=== PATIENT | female | born 1940 | race Caucasian/White ===

== ENCOUNTER → 2019-02-23 | Outpatient (CLI) | payer MEDICARE, OTHER ==
--- NOTE | 2019-02-23 14:45 | Diagnostic Imaging Report ---
INDICATION: Right knee pain. AP, oblique, and lateral views of the right knee are obtained. No fracture or acute bony abnormality is seen. There is mild medial joint space narrowing and osteophyte formation. IMPRESSION: Mild degenerative change of the medial compartment with no acute bony abnormality or joint effusion. Dictated by: Dictated on workstation # [id number]
== END ==
LOC: RAD FS 10:19
PROVIDERS: ATTEND Nurse Practitioner
DX: M17.11 Unilateral primary osteoarthritis, right knee (principal)
CPT/HCPCS: 73562

== ENCOUNTER 2020-02-04 16:50 | Emergency (ER) | payer OTHER, MEDICARE ==
[~2020-02-04] VITALS: Ht 170.2 cm; Wt 56.8 kg
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
[2020-02-04] MEDS ORDERED: HYDR-83 PO (18:25)
[2020-02-04] MEDS ORDERED: HYDROcodone/APAP 5 MG/325 MG (LORTAB) TAB PO ONE (18:30)
[2020-02-04 18:40] VITALS: BP 194/85
--- OUTSIDE RECORDS SUMMARY | 2020-02-04 20:13 | XMS REPORT ---
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 0 [id number] Problem Closed left hip fracture S72.002A Sep, 0 686367673 Problem Hypothyroidism due to acquired atrophy of thyroid 244.8 Jun, 0 052880009 Problem Hypothyroidism due to acquired atrophy of thyroid E03.4 Jun, 0 958972019 Problem CKD (chronic kidney disease) stage 3, GFR 30-59 ml/min N18.3 Jun, 0 669415757 Problem Hypothyroidism 244.9 Apr, 0 40 772367 Problem Osteoarthritis of left knee M17.12 07 Mar, 2010 0 687566140 Problem Anxiety state 300.00 Oct, 0 198 313523 Problem Osteoarthritis of lumbar spine M47.816 0 225823689 Problem Anxiety state F41.1 Oct, 0 198 917342 Problem Hypothyroidism E03.9 Apr, 0 40 610522 Problem Osteoarthritis of left knee 715.96 07 Mar, 2010 0 473552055 Problem CKD (chronic kidney disease) stage 3, GFR 30-59 ml/min 585.3 Jun, 0 358060332 ALLERGIES No Information ENCOUNTERS Encounter Location Date Diagnosis [facility] [address] [place] [address] Sep, [facility] [address] [facility] [id number] [address] [address] Jun, [facility] [address] [id number] [address] [place] [phone] Jun, [facility] [address] [facility] [id number] [address] [place] [phone] Jun, [facility] [address] [facility] [id number] [address] [place] [phone] Jun, [facility] [address] [facility] [id number] [address] [place] [phone] Oct, [facility] [address] [facility] [id number] [address] [place] [phone] Oct, [facility] [address] [facility] [id number] [address] [place] [phone] Sep, IMMUNIZATIONS No Known Immunizations SOCIAL HISTORY Never Assessed REASON FOR VISIT AMITRIPTYLINE PLAN OF CARE VITAL SIGNS MEDICATIONS Medication Instructions Dosage Frequency Start Date End Date Duration S nancy Amitriptyline HCl 50 MG Orally at bedtime as directed Sep, 90 days Active RESULTS No Results PROCEDURES No Known procedures INSTRUCTIONS MEDICATIONS ADMINISTERED No Known Medications
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
== END 2020-02-04 18:35 | disposition home or self-care (01) ==
LOC: EDUNIT# 16:50 → ER FS 16:51
DX: S82.141A Displaced bicondylar fracture of right tibia, initial encounter for closed fracture (principal); Z88.8 Allergy status to other drugs, medicaments and biological substances; V49.50XA Passenger injured in collision with unspecified motor vehicles in traffic accident, initial encounter
CPT/HCPCS: 70450; 73562

== ENCOUNTER → 2020-02-09 | Outpatient (CLI) | payer OTHER, MEDICARE ==
[~2020-02-09] MED LIST: HYDR-83 PO
--- NOTE | 2020-02-09 15:06 | Diagnostic Imaging Report ---
PROCEDURE: CT right lower extremity without contrast. TECHNIQUE: Axially acquired CT was obtained through the right lower extremity without intravenous contrast. Coronal and sagittal reformations were also performed. Auto Exposure Controls were utilized during the CT exam to meet ALARA standards for radiation dose reduction. INDICATION: Fracture followup. COMPARISON: Knee radiograph of 02/04/2020. FINDINGS: There is a mildly comminuted fracture involving the anterior and peripheral one third of the medial tibial plateau. This has mild comminution present with it and dominant osteoarticular fracture fragment that is depressed approximately 2 mm. The fracture lines extending along the medial cortex of the proximal tibial metaphysis. There is no dominant sagittal split fracture. There are a few thin hairline fractures extending along the bases of the medial and lateral tibial spines. However, these fractures are not displaced nor depressed. No fracture in the lateral tibial plateau. The medial and lateral femoral condyles are intact. Patella is intact. Small lipohemarthrosis is compatible with intra-articular fracture. PCL is intact. ACL not well seen but likely is intact. IMPRESSION: 1. Medial tibial plateau fracture is very mildly comminuted and has approximately 2 mm of maximal articular surface depression. 2. There are hairline fractures involving the bases of the tibial spines, but these fractures are not displaced or depressed. Dictated by: Dictated on workstation # [id number]
== END ==
LOC: RAD FS 12:19
PROVIDERS: ATTEND Nurse Practitioner
DX: S82.131D Displaced fracture of medial condyle of right tibia, subsequent encounter for closed fracture with routine healing (principal); X58.XXXD Exposure to other specified factors, subsequent encounter
CPT/HCPCS: 73700

== ENCOUNTER → 2020-02-21 | Outpatient (CLI) | payer OTHER, MEDICARE ==
[~2020-02-21] MED LIST changes: +HYDR-3812 PO; -HYDR-83 PO
--- NOTE | 2020-02-21 09:31 | Diagnostic Imaging Report ---
INDICATION: Tibial fracture, followup. TIME OF EXAM: 9:16 AM. COMPARISON: 02/04/2020. FINDINGS: The slightly depressed fracture of the medial tibial plateau is again noted. The fracture lines are somewhat blurred, consistent with some healing, but do remain present. The lucency through the lateral tibial plateau just lateral to the lateral tibial spine is also noted and unchanged, consistent with a fracture line. The alignment remains stable. The joint fluid has improved since the prior exam. IMPRESSION: The proximal tibial fracture shows some healing since the prior examination of 2 weeks earlier. Fracture lines do remain partly visible, however. Dictated by: Dictated on workstation # [id number]
== END ==
LOC: RAD FS 09:03
PROVIDERS: ATTEND Nurse Practitioner
DX: S82.131A Displaced fracture of medial condyle of right tibia, initial encounter for closed fracture (principal); X58.XXXA Exposure to other specified factors, initial encounter
CPT/HCPCS: 73562

== ENCOUNTER → 2020-03-06 | Outpatient (CLI) | payer OTHER, MEDICARE ==
--- NOTE | 2020-03-06 10:01 | Diagnostic Imaging Report ---
INDICATION: Right knee fracture, followup. TIME OF EXAM: 9:22 AM. COMPARISON: 02/21/2020. FINDINGS: The fracture and depression of the medial tibial plateau are again noted. There is increasing sclerosis and blurring of the fracture lines. Lucency extending through the lateral plateau persists. No effusion is seen. IMPRESSION: Continued healing proximal tibial fractures with blurring of the fracture lines. Fracture lines do remain partially visible, however. Dictated by: Dictated on workstation # [id number]
== END ==
LOC: RAD FS 09:14
PROVIDERS: ATTEND Nurse Practitioner
DX: S82.131D Displaced fracture of medial condyle of right tibia, subsequent encounter for closed fracture with routine healing (principal); X58.XXXD Exposure to other specified factors, subsequent encounter
CPT/HCPCS: 73562

== ENCOUNTER → 2020-03-27 | Outpatient (CLI) | payer OTHER, MEDICARE ==
--- NOTE | 2020-03-27 09:40 | Diagnostic Imaging Report ---
INDICATION: Fracture. FINDINGS: There is further sclerosis of the medial and central tibial plateau fractures. Appears to be continued callus formation. There is no other acute fracture or dislocation. Soft tissues are unremarkable. IMPRESSION: Unchanged alignment and further sclerosis about the proximal tibial and right tibial fractures as described. Dictated by: Dictated on workstation # [id number]
== END ==
LOC: RAD FS 09:10
PROVIDERS: ATTEND Nurse Practitioner
DX: S82.131D Displaced fracture of medial condyle of right tibia, subsequent encounter for closed fracture with routine healing (principal)
CPT/HCPCS: 73562

== ENCOUNTER → 2020-04-10 | Outpatient (CLI) | payer OTHER, MEDICARE ==
[~2020-04-10] MED LIST changes: +ACHD5005 PO; -HYDR-3812 PO
--- NOTE | 2020-04-10 10:14 | Diagnostic Imaging Report ---
INDICATION: Followup right knee fracture. TIME OF EXAM: 9:32 AM. COMPARISON: Correlation is made with the prior radiograph from 03/27/2020. FINDINGS: A healing depressed medial tibial plateau fracture is again noted. There is sclerosis at the fracture site. There continues to be partial visualization of the fracture line along the medial aspect of the proximal tibia. The overall alignment is stable. The distal femur, patella, and fibula are intact. IMPRESSION: Healing medial tibial plateau fracture. Fracture line does remain partially visible. Dictated by: Dictated on workstation # [id number]
== END ==
LOC: RAD FS 09:19
PROVIDERS: ATTEND Nurse Practitioner
DX: S82.131D Displaced fracture of medial condyle of right tibia, subsequent encounter for closed fracture with routine healing (principal); X58.XXXD Exposure to other specified factors, subsequent encounter
CPT/HCPCS: 73562

== ENCOUNTER → 2020-05-08 | Outpatient (CLI) | payer OTHER, MEDICARE ==
--- NOTE | 2020-05-08 09:42 | Diagnostic Imaging Report ---
INDICATION: Fracture. COMPARISON: 04/10/2020. FINDINGS: There is a subacute fracture of the medial tibial plateau. Faint lucency persists. This is essentially unchanged when compared to the prior examination. There is no other acute fracture or dislocation. IMPRESSION: Healing subacute fracture of the medial tibial plateau. Dictated by: Dictated on workstation # [id number]
== END ==
LOC: RAD FS 09:05
PROVIDERS: ATTEND Nurse Practitioner
DX: S82.131D Displaced fracture of medial condyle of right tibia, subsequent encounter for closed fracture with routine healing (principal); M70.51 Other bursitis of knee, right knee; X58.XXXD Exposure to other specified factors, subsequent encounter
CPT/HCPCS: 73562

== ENCOUNTER → 2022-09-03 | Outpatient (CLI) | payer MEDICARE ==
--- NOTE | 2022-09-03 16:40 | Diagnostic Imaging Report ---
EXAMINATION: Right hip, 2 views. COMPARISON: None. HISTORY: 82-year-old female, chronic right hip pain. FINDINGS: There is a right hip prosthesis. The hardware is intact. There is no identified periprosthetic lucency. There is no identified acute fracture. There is no cortical or aggressive bone destruction. IMPRESSION: 1. Intact right hip prosthesis without identified complication. 2. No identified acute bony abnormality in the region of the right hip. Dictated by: Dictated on workstation # [id number]
--- NOTE | 2022-09-03 16:40 | Diagnostic Imaging Report ---
EXAMINATION: Right knee radiographs, 3 views. COMPARISON: Right knee radiographs May 08, 2020. HISTORY: 82-year-old female, chronic right knee pain. FINDINGS: The bones appear likely demineralized. There is mild patellofemoral compartment joint space loss without osteophyte formation. There is no knee joint effusion. The medial and lateral compartment joint spaces are not significantly narrowed. There is no identified acute fracture. There is chronic appearing irregularity of the medial tibial plateau which may reflect prior injury. There is no radiopaque foreign body. IMPRESSION: 1. Mild patellofemoral compartment osteoarthritis. 2. Sequela prior fracture of the medial tibial plateau without residual fracture line. 3. No acute fracture or knee joint effusion. Dictated by: Dictated on workstation # [id number]
--- NOTE | 2022-09-03 17:58 | Diagnostic Imaging Report ---
INDICATION: Right leg pain COMPARISON: Imaging from the same date. TECHNIQUE: 4 radiographs of the right femur dated 09/03/2022. FINDINGS: A right hip arthroplasty is in place without hardware complication. No acute fracture or dislocation. No destructive osseous process. No suspicious radiopaque foreign body. IMPRESSION: Right hip arthroplasty without hardware complication or acute osseous abnormality. Dictated by: Dictated on workstation # [id number]
== END ==
LOC: RAD FS 12:03
PROVIDERS: ATTEND Family Medicine
DX: M17.11 Unilateral primary osteoarthritis, right knee (principal); S82.141S Displaced bicondylar fracture of right tibia, sequela; Z96.641 Presence of right artificial hip joint; X58.XXXS Exposure to other specified factors, sequela
CPT/HCPCS: 73502; 73552; 73562